=== PATIENT | male | born 1980 | race Caucasian/White ===

== ENCOUNTER 2017-04-30 09:04 | Emergency (ER) | payer BC ==
[~2017-04-30] VITALS: Ht 180.3 cm; Wt 118.2 kg
[2017-04-30 09:45] LABS: EOS % 0.5 % (0.0-4.0); HEMATOCRIT 44.5 % (42.0-52.0); HEMOGLOBIN 14.6 g/dL (13.5-18.0); LYMPH# 1.8 (1.50-4.00); MEAN CELL VOLUME 79 fl (78-100); MEAN CORPUSCULAR HEMOGLOBIN 26 pg (27-31); MEAN CORPUSCULAR HGB CONC 33 g/dL (33-37); MEAN PLATELET VOLUME 8.7 fl (7.4-10.4); MONO # 0.5 (0.20-0.80); NEU # 5.1 (1.40-6.50); PLATELET COUNT 305 K/mm3 (130-400); RED BLOOD COUNT 5.64 M/mm3 (4.20-5.60); RED CELL DISTRIBUTION WIDTH 14.1 % (11.5-14.5); WHITE BLOOD COUNT 7.5 K/mm3 (4.8-10.8)
[2017-04-30 10:00] LABS: ALBUMIN 4.4 g/dL (3.5-5.0); BUN/CREATININE RATIO 14.2 (6.0-26.0); CALCIUM 9.5 mg/dL (8.4-10.2); POTASSIUM 4.2 mmol/L (3.6-5.0); TOTAL BILIRUBIN 0.9 mg/dL (0.2-1.3); TOTAL PROTEIN 7.8 g/dL (6.3-8.2)
[2017-04-30] MEDS ORDERED: LEVAQUIN 5500 MG/TA1 PO (11:24)
[2017-04-30] MEDS ORDERED: GOOD NEIGHBOR M25 MG PO (11:24)
[2017-04-30] MEDS ORDERED: PROAIR HFA0.09 MG/AC IH (11:24)
[2017-04-30 11:45] VITALS: BP 111/55
== END 2017-04-30 11:35 | disposition home or self-care (01) ==
LOC: ED 09:04
PROVIDERS: Physician Assistant
DX: H83.03 Labyrinthitis, bilateral (principal); J32.9 Chronic sinusitis, unspecified; F17.220 Nicotine dependence, chewing tobacco, uncomplicated; J40 Bronchitis, not specified as acute or chronic
CPT/HCPCS: J2405; J7120

== ENCOUNTER → 2020-08-11 | Outpatient (CLI) | payer BC ==
[~2020-08-11] MED LIST: GOOD NEIGHBOR M25 MG PO; LEVAQUIN 5500 MG/TA1 PO; PROAIR HFA0.09 MG/AC IH
== END ==
LOC: RAD 20:09
DX: S86.891A Other injury of other muscle(s) and tendon(s) at lower leg level, right leg, initial encounter (principal); M25.461 Effusion, right knee

== ENCOUNTER → 2021-01-31 | Outpatient (CLI) | payer BC | LOC: RAD 07:40 | DX: M87.88 Other osteonecrosis, other site (principal) ==

== ENCOUNTER → 2021-04-19 | Outpatient (CLI) | payer BC ==
[~2021-04-19] VITALS: Ht 180.3 cm; Wt 118.2 kg
[~2021-04-19] MED LIST changes: +DESYREL 100MG100 MG PO; +LANSOPRAZOLE30 M2 PO; +PROAIR DIGIHAL90 MCG IH; +QUETIAPINE FUMA25 M3 PO; +WEGOVY2.4 MG/0.7 SQ
[2021-04-19 16:40] VITALS: BP 151/74
[2021-04-19 16:46] LABS: HEMOGLOBIN 14.2 g/dL (13.5-18.0); MEAN PLATELET VOLUME 9.3 fl (7.4-10.4); RED BLOOD COUNT 5.51 M/mm3 (4.20-5.60); RED CELL DISTRIBUTION WIDTH 13.9 % (11.5-14.5); WHITE BLOOD COUNT 4.3 K/mm3 (4.8-10.8)
[2021-04-19 16:55] LABS: ALBUMIN 3.8 g/dL (3.5-5.0)
[2021-04-19 16:57] LABS: CALCIUM 8.7 mg/dL (8.3-10.5)
[2021-04-19 16:58] LABS: TOTAL PROTEIN 7.5 g/dL (6.4-8.3)
[2021-04-19 17:00] LABS: TOTAL BILIRUBIN 0.7 mg/dL (0.2-1.2)
[2021-04-19 18:54] VITALS: BP 104/88
[2021-04-19 19:20] LABS: URINE APPEARANCE CLEAR; URINE BILIRUBIN 1+ (NEGATIVE); URINE BLOOD NEGATIVE (NEGATIVE); URINE COLOR YELLOW; URINE GLUCOSE NEGATIVE (NEGATIVE); URINE KETONE 2+ (NEGATIVE); URINE LEUKOCYTE ESTERASE NEGATIVE (NEGATIVE); URINE NITRATE NEGATIVE (NEGATIVE); URINE PROTEIN(semi-quant) 1+ (NEGATIVE); URINE UROBILINOGEN 8 mg/dL (NORMAL); URINE WBC 0 /hpf (0-3)
[2021-04-19 19:21] LABS: URINE MUCUS PRESENT (NOT PRESENT)
== END ==
LOC: AMSURD 16:08
PROVIDERS: Nurse Practitioner Family
DX: E86.0 Dehydration (principal); Z20.822 Contact with and (suspected) exposure to COVID-19
CPT/HCPCS: J7030

== ENCOUNTER 2021-04-21 10:24 | Emergency (ER) | payer BC ==
[~2021-04-21] VITALS: Ht 177.8 cm; Wt 118.2 kg
[~2021-04-21 10:24] MED LIST changes: -DESYREL 100MG100 MG PO; -LANSOPRAZOLE30 M2 PO; -PROAIR DIGIHAL90 MCG IH; -QUETIAPINE FUMA25 M3 PO; -WEGOVY2.4 MG/0.7 SQ
[2021-04-21] MEDS ORDERED: WEGOVY2.4 MG/0.7 SQ (10:38)
[2021-04-21] MEDS ORDERED: QUETIAPINE FUMA25 M3 PO (10:38)
[2021-04-21] MEDS ORDERED: LANSOPRAZOLE30 M2 PO (10:38)
[2021-04-21] MEDS ORDERED: DESYREL 100MG100 MG PO (10:39)
[2021-04-21 11:03] LABS: HEMATOCRIT 42.2 % (42.0-52.0); LYMPH# 1.01 K/mm3 (1.50-4.00); MEAN CELL VOLUME 78 fl (78-100); MEAN CORPUSCULAR HEMOGLOBIN 26 pg (27-31); MEAN CORPUSCULAR HGB CONC 33 g/dL (33-37); MEAN PLATELET VOLUME 9.1 fl (7.4-10.4); MONO # 0.23 K/mm3 (0.20-0.80); NEU # 2.58 K/mm3 (1.40-6.50); PLATELET COUNT 238 K/mm3 (130-400); RED BLOOD COUNT 5.38 M/mm3 (4.20-5.60); RED CELL DISTRIBUTION WIDTH 13.7 % (11.5-14.5); WHITE BLOOD COUNT 3.9 K/mm3 (4.8-10.8)
[2021-04-21 11:12] LABS: ALBUMIN 3.8 g/dL (3.5-5.0); POTASSIUM 3.7 mmol/L (3.5-5.1); SODIUM 137 mmol/L (136-145)
[2021-04-21 11:14] LABS: GLUCOSE 131 mg/dL (75-110); TOTAL PROTEIN 7.1 g/dL (6.4-8.3)
[2021-04-21 11:15] LABS: CARBON DIOXIDE 21 mmol/L (22-29)
[2021-04-21 11:16] LABS: TOTAL BILIRUBIN 0.7 mg/dL (0.2-1.2)
[2021-04-21 11:20] LABS: AST-SGOT 34 U/L (5-34)
[2021-04-21 11:21] LABS: ALT/SGPT 40 U/L (0-55)
[2021-04-21 11:28] LABS: TROPONIN-I < 0.030 ng/mL (<0.030)
[2021-04-21 11:39] LABS: D-DIMER 0.99 mg/L FEU (0.15-0.50)
[2021-04-21] MEDS ORDERED: PROAIR DIGIHAL90 MCG IH (12:53)
[2021-04-21 13:35] VITALS: BP 122/78
== END 2021-04-21 13:35 | disposition home or self-care (01) ==
LOC: ED 10:24
PROVIDERS: Nurse Practitioner
DX: U07.1 COVID-19 (principal); R79.1 Abnormal coagulation profile; Z73.0 Burn-out
CPT/HCPCS: Q9967